=== PATIENT | male | born 1970 | race African-American/Black ===

== ENCOUNTER 2016-10-17 22:37 | Emergency (ER) | payer OTHER ==
--- NOTE | ~2016-10-17 | CR230 ---
[facility] A Service of [facility] RADIOLOGY TEXT RESULTS PATIENT: JUAN GUZMAN LOCATION: [facility] : 70 UNIT #: [id number] AGE: [address]: MAURIZIO LOAIZA APRN SEX: M ORDER DR: [id number] [facility] [address] [place], [place] [address] [id number] MR#: [id number] Acc #: [id number] NAME: JUAN GUZMAN : 1970 SEX: M STUDY DATE/TIME: 10/18/2016 1:03 UNIT: [facility] ROOM: STUDY DESCRIPTION: CR Shoulder Min 2 View Rt Attending Physician: Maurizio Loaiza Aprn Ordering Physician: Maurizio Loaiza Aprn Primary Care Physician: Primary Care Physician No MEDICAL IMAGING REPORT This report is preliminary unless electronic signature is present EXAM Right shoulder, 10/18/2016 INDICATION Right shoulder pain since yesterday. COMPARISON None. FINDINGS Multiple views of the right shoulder were obtained. There is degenerative change at the acromioclavicular joint. There is no fracture or dislocation. IMPRESSION Degenerative change of the acromioclavicular joint, otherwise normal. Dictated by... Andre Peterson M.D. THIS IS AN ELECTRONICALLY VERIFIED REPORT Andre Peterson M.D. at 10/18/2016 5:56 AM HOANG/rossy TD: 10/18/2016 04:26 JOB #: [id number] MEDICAL IMAGING REPORT Page 1 of 1 COPY
== END 2016-10-18 02:25 | disposition home or self-care (01) ==
LOC: CED 22:37
DX: S46.911A Strain of unspecified muscle, fascia and tendon at shoulder and upper arm level, right arm, initial encounter (principal); X50.0XXA Overexertion from strenuous movement or load, initial encounter; Y93.89 Activity, other specified; Y92.009 Unspecified place in unspecified non-institutional (private) residence as the place of occurrence of the external cause; Z88.0 Allergy status to penicillin; F17.210 Nicotine dependence, cigarettes, uncomplicated
CPT/HCPCS: 73030; 96372; 99283; J1885

== ENCOUNTER 2016-11-04 02:24 | Emergency (ER) | payer OTHER | END 2016-11-04 06:20 | disposition home or self-care (01) | LOC: CED 02:24 | DX: S46.911A Strain of unspecified muscle, fascia and tendon at shoulder and upper arm level, right arm, initial encounter (principal); Z88.0 Allergy status to penicillin; F17.210 Nicotine dependence, cigarettes, uncomplicated; X58.XXXA Exposure to other specified factors, initial encounter; Y92.39 Other specified sports and athletic area as the place of occurrence of the external cause | CPT/HCPCS: 96372; 99283; J1885 ==